=== PATIENT | female | born 1990 | race Caucasian/White ===

== ENCOUNTER → 2017-02-10 | Outpatient (CLI) | payer OTHER ==
--- NOTE | 2017-02-10 14:58 | REP ---
Right ribs and PA chest: Right ribs four views: There is no rib fracture or other rib abnormality. PA chest: There are no comparisons. There is no pneumothorax, hemothorax or pulmonary contusion. Lung davis are clear. Cardiac size is normal. The dolly, mediastinum, and bony thorax are unremarkable. Impression: Negative PA chest. Signed by Norman Hernandez MD 02/10/2017 02:49 P
== END ==
LOC: M LRY 14:24
PROVIDERS: ATTEND Nurse Practitioner Family
DX: R07.9 Chest pain, unspecified (principal)
CPT/HCPCS: 71101; 80053; 82150; 83690; 85025; 85379; G0463

== ENCOUNTER → 2017-02-10 | Outpatient (REF) | payer OTHER ==
[2017-02-10 17:17] LABS: BASO % 0.7 % (0.0-1.0); EOS # 0.1 K/mm3 (0.0-0.50); EOS % 1.3 % (0.0-3.0); LARGE UNSTAINED CELL # 0.1 K/mm3 (0.0-0.4); LARGE UNSTAINED CELL % 2.1 % (0.0-4.0); LYMPH # 1.3 K/mm3 (1.5-6.5); MEAN CORPUSCULAR HEMOGLOBIN 30.2 pg (27.0-33.0); MEAN CORPUSCULAR HGB CONC 34.3 g/dl (32.0-36.5); MEAN CORPUSCULAR VOLUME 87.9 fl (80.0-96.0); MONO # 0.3 K/mm3 (0.0-0.8); MONO % 5.3 % (0.0-5.0); NEUTROPHILS # 4.4 K/mm3 (1.8-7.7); NEUTROPHILS % 69.5 % (36.0-66.0); PLATELET COUNT, AUTOMATED 257 k/mm3 (150-450); WHITE BLOOD COUNT 6.4 K/mm3 (4.0-10.0)
[2017-02-10 17:27] LABS: ALBUMIN 4.5 GM/DL (3.2-5.2); ALBUMIN/GLOBULIN RATIO 1.15 (1.00-1.93); ALKALINE PHOSPHATASE 90 U/L (45-117); ALT/SGPT 15 U/L (12-78); AMYLASE 80 U/L (25-115); ANION GAP 4 MEQ/L (8-16); AST/SGOT 13 U/L (15-37); BILIRUBIN,TOTAL 0.4 MG/DL (0.2-1.0); BLOOD UREA NITROGEN 11 MG/DL (7-18); CALCIUM LEVEL 9.2 MG/DL (8.5-10.1); CARBON DIOXIDE LEVEL 32 MEQ/L (21-32); CHLORIDE LEVEL 105 MEQ/L (98-107); CREATININE FOR GFR 0.96 MG/DL (0.55-1.02); GLOMERULAR FILTRATION RATE > 60.0 (>60); GLUCOSE, FASTING 93 MG/DL (70-105); POTASSIUM SERUM 4.2 MEQ/L (3.5-5.1); SODIUM LEVEL 141 MEQ/L (136-145); TOTAL PROTEIN 8.4 GM/DL (6.4-8.2)
== END ==
LOC: M SFHCLERA 15:01
PROVIDERS: ATTEND Nurse Practitioner Family
DX: R07.9 Chest pain, unspecified (principal)

== ENCOUNTER → 2017-04-03 | Outpatient (CLI) | payer OTHER ==
--- NOTE | 2017-04-05 05:29 | ECHO ---
DATE OF PROCEDURE: 04/03/2017 REFERRING PHYSICIAN: Dr. Saul Arias INDICATION: Chest pain unspecified. HEIGHT: 66 inches. WEIGHT: 124 pounds. 2D MEASUREMENTS: Ventricular septum: 0.87 cm Posterior wall: 0.93 cm Left ventricle diastole: 4.4 cm Left atrium: 3.1 cm Aortic root: 2.8 cm LVOT: 2.1 cm Inferior vena cava: 2.15 cm (more than 50% respiratory variation) DOPPLER MEASUREMENTS: Aortic valve velocity: 138 cm/s LVOT velocity: 102 cm/s LVOT VTI: 25.1 cm Very mild mitral regurgitation Mitral E velocity: 92.8 cm/s Mitral A velocity: 55.8 cm/s Mitral E-deceleration time: 239 ms Very mild tricuspid regurgitation within normal limits. Pulmonary artery systolic pressure: 28 mmHg MITRAL ANNULAR TISSUE DOPPLER: E-prime septal: 9.7 cm/s E-prime lateral: 23.5 cm/s DESCRIPTION: Rhythm was sinus. Image quality was good. This is 2D, M mode, color flow Doppler and pulse wave Doppler examination that included mitral annular tissue Doppler. CONCLUSIONS: 1. Suspicious for presence of a right pleural effusion. 2. Otherwise, normal echocardiogram Doppler. 3. Normal left ventricle internal dimensions and wall thickness. Normal LV wall motion and wall thickening. Normal LV systolic function. LVEF 60% by visual estimate. Normal LV diastolic function. 4. Presence of a false tendon involving the left ventricle at mid level (normal variant). ADDITIONAL COMMENTS AND RECOMMENDATIONS: Suggest a PA and lateral chest x-ray if one has not already been obtained recently.
== END ==
LOC: M CARPUL 12:38
PROVIDERS: ATTEND Family Medicine
DX: R07.9 Chest pain, unspecified (principal)

== ENCOUNTER → 2017-06-20 | Outpatient (CLI) | payer OTHER ==
--- NOTE | 2017-06-21 09:58 | REP ---
NONCONTRAST CHEST CT: CLINICAL: Abnormal chest x-ray. FINDINGS: The bilateral lung davis are well aerated, symmetric, and clear. No acute consolidation, significant nodule, or mass lesion. No pleural effusion/reaction or pneumothorax. Tracheobronchial tree is patent. Mediastinum demonstrates normal thoracic aorta and heart/pericardium. No adenopathy. Surrounding musculoskeletal structures are intact. Limited upper abdomen demonstrates normal bilateral adrenal glands. IMPRESSION: No acute mediastinal or pleuroparenchymal process. Negative chest CT without contrast. Signed by Cody Womack MD 06/23/2017 08:22 A
== END ==
LOC: M RAD 10:50
PROVIDERS: ATTEND Internal Medicine Pulmonary Disease
DX: R91.8 Other nonspecific abnormal finding of lung field (principal)

== ENCOUNTER → 2017-07-04 | Outpatient (REF) | payer OTHER ==
[2017-07-09 08:30] LABS: D001-IgE D pteronyssinus 3.15 kU/L (Class III); E001-IgE Cat Epith/Dander < 0.10 kU/L (Class 0); E005-IgE Dog Dander < 0.10 kU/L (Class 0); G002-IgE Bermuda Grass < 0.10 kU/L (Class 0); G008-IgE Kentucky Bluegrass < 0.10 kU/L (Class 0); M001-IgE Penicillium chrysogen < 0.10 kU/L (Class 0); M002 IgE Cladosporium herbaru < 0.10 kU/L (Class 0); M003 IgE Aspergillus fumigatu < 0.10 kU/L (Class 0); M006-IgE Alternaria alternata < 0.10 kU/L (Class 0); T001-IgE Maple/Box Elder < 0.10 kU/L (Class 0); T003-IgE Common Silver Birch < 0.10 kU/L (Class 0); T007-IgE Oak, White < 0.10 kU/L (Class 0); T008-IgE Elm, American < 0.10 kU/L (Class 0); T015-IgE Ash, White < 0.10 kU/L (Class 0); T041-IgE Hickory, White < 0.10 kU/L (Class 0); W001-IgE Ragweed, Short 0.64 kU/L (Class II); W009-IgE Plantain, English < 0.10 kU/L (Class 0); W014-IgE Pigweed, Rough < 0.10 kU/L (Class 0); W018-IgE Sheep Sorrel < 0.10 kU/L (Class 0)
== END ==
LOC: M LAB REF 13:12
PROVIDERS: ATTEND Internal Medicine Pulmonary Disease
DX: J45.40 Moderate persistent asthma, uncomplicated (principal)